=== PATIENT | female | born 1980 | race Caucasian/White ===

== ENCOUNTER 2022-02-13 02:35 | Emergency (ER) | payer SELFPAY ==
--- NOTE | 2022-02-13 02:47 | NUR ---
Pt stated she threw up in restroom and feels better. She states she does not want to be seen by MD.
--- NOTE | 2022-02-13 02:47 | NUR ---
Pt left without being seen.
== END 2022-02-13 02:47 | disposition left against medical advice (07) ==
LOC: SED 02:35
DX: R10.9 Unspecified abdominal pain (principal); Z53.21 Procedure and treatment not carried out due to patient leaving prior to being seen by health care provider